=== PATIENT | male | born 1965 | race American Indian/Alaskan Native ===

== ENCOUNTER 2020-03-17 13:53 | Emergency (ER) | payer SELFPAY ==
[~2020-03-17] VITALS: Ht 160 cm; Wt 66.4 kg
[2020-03-17 14:04] VITALS: TEMP 97.3
[2020-03-17] MEDS ORDERED: ASACOL HD800 MG PO (14:22)
[2020-03-17 14:47] LABS: BASO # 0.1 (0.0-0.2); BASO % 1.2 % (0.0-2.0); EOS # 0.6 (0.0-0.7); EOS % 9.1 % (0-4.0); GRAN # 3.7 (1.4-6.5); GRAN % 54.9 % (42.2-75.2); HEMATOCRIT 47.8 % (42.0-52.0); HEMOGLOBIN 16.3 g/dl (13.5-18.0); LYMPH # 1.5 (1.2-3.4); LYMPH % 22.5 % (20.0-51.0); MEAN CELL VOLUME 96 fl (80.0-100.0); MEAN CORPUSCULAR HEMOGLOBIN 33 pg (27.0-31.0); MEAN CORPUSCULAR HGB CONC 34 g/dl (33.0-37.0); MEAN PLATELET VOLUME 10.2 fl (7.4-10.4); MONO # 0.8 (0.1-0.6); PLATELET COUNT 273 K/mm3 (130-400); REDCELL DISTRIBUTION WIDTH-CV 12.5 % (11.5-14.5)
[2020-03-17 14:57] LABS: ALANINE AMINOTRANSFERASE 57 U/L (4-49); ALBUMIN 4.5 gm/dL (3.5-5.0); ALKALINE PHOSPHATASE 120 U/L (50-136); ANION GAP 10 mmol/L (7-16); AST,SGOT 43 U/L (15-37); BILIRUBIN,TOTAL 0.5 mg/dL (0.0-1.0); BLOOD UREA NITROGEN 18 mg/dL (9-20); CALCIUM 9.5 mg/dL (8.4-10.2); CARBON DIOXIDE 28 mmol/L (22-30); CHLORIDE 103 mmol/L (98-107); CREATININE, serum 0.93 (0.66-1.25); GLUCOSE 140 mg/dL (74-106); POTASSIUM 3.9 mmol/L (3.4-5.0); SODIUM 140 mmol/L (137-145); TOTAL PROTEIN 8.2 gm/dL (6.4-8.2)
[2020-03-17 15:09] LABS: TROPONIN-I < 0.012 ng/mL (0.000-0.035)
[2020-03-17] MEDS ORDERED: PREDNISONE20 MG PO (16:49)
[2020-03-17] MEDS ORDERED: ZITHROMAX 250M250 MG PO (16:50)
[2020-03-17 16:59] VITALS: BP 154/112; PULSE 76
== END 2020-03-17 17:01 | disposition home or self-care (01) ==
LOC: COL.ER 13:53
PROVIDERS: Nurse Practitioner Family
DX: J45.901 Unspecified asthma with (acute) exacerbation (principal); I10 Essential (primary) hypertension; F10.10 Alcohol abuse, uncomplicated; Z20.822 Contact with and (suspected) exposure to COVID-19; Z91.19 Patient's noncompliance with other medical treatment and regimen
CPT/HCPCS: J2930

== ENCOUNTER 2020-07-11 11:32 | Observation (INO) | payer MEDICARE ==
[~2020-07-11] VITALS: Ht 154.9 cm; Wt 69.1 kg
[~2020-07-11 11:32] MED LIST: ASACOL HD800 MG PO; PREDNISONE20 MG PO; ZITHROMAX 250M250 MG PO
[2020-07-11 12:27] LABS: BASO # 0.1 (0.0-0.2); BASO % 0.6 % (0.0-2.0); EOS # 0.3 (0.0-0.7); EOS % 3.8 % (0-4.0); GRAN # 5.5 (1.4-6.5); GRAN % 69.2 % (42.2-75.2); HEMATOCRIT 44.4 % (42.0-52.0); HEMOGLOBIN 15.3 g/dl (13.5-18.0); LYMPH # 1.3 (1.2-3.4); LYMPH % 16.6 % (20.0-51.0); MEAN CELL VOLUME 95 fl (80.0-100.0); MEAN CORPUSCULAR HEMOGLOBIN 33 pg (27.0-31.0); MEAN CORPUSCULAR HGB CONC 35 g/dl (33.0-37.0); MEAN PLATELET VOLUME 10.4 fl (7.4-10.4); MONO # 0.8 (0.1-0.6); MONO % 9.5 % (1.7-9.3); PLATELET COUNT 222 K/mm3 (130-400); RED BLOOD COUNT 4.68 M/mm3 (4.20-5.60); REDCELL DISTRIBUTION WIDTH-CV 12.1 % (11.5-14.5)
[2020-07-11 12:36] LABS: ALANINE AMINOTRANSFERASE 51 U/L (4-49); ALBUMIN 4.2 gm/dL (3.5-5.0); ALKALINE PHOSPHATASE 123 U/L (50-136); ANION GAP 8 mmol/L (7-16); AST,SGOT 50 U/L (15-37); BILIRUBIN,TOTAL 0.5 mg/dL (0.0-1.0); BLOOD UREA NITROGEN 25 mg/dL (9-20); CALCIUM 9.1 mg/dL (8.4-10.2); CARBON DIOXIDE 26 mmol/L (22-30); CHLORIDE 104 mmol/L (98-107); CREATININE, serum 0.86 (0.66-1.25); GLUCOSE 107 mg/dL (74-106); LIPASE 121 U/L (23-300); SODIUM 139 mmol/L (137-145); TOTAL PROTEIN 7.8 gm/dL (6.4-8.2)
[2020-07-11 12:40] LABS: ALCOHOL(ethanol),MEDICAL < 10 mg/dL
[2020-07-11 12:44] LABS: PROTHROMBIN TIME 11.1 SECONDS (9.7-12.8)
[2020-07-11 13:08] LABS: TROPONIN-I 0.085 ng/mL (0.000-0.035)
[2020-07-11] MEDS ORDERED: PROVENTIL0.09 MG/A1 IH (14:30)
[2020-07-11] MEDS ORDERED: ALBUTEROL0.83 MG/ML IH (14:30)
[2020-07-11] MEDS ORDERED: CLARITIN 1010 MG/TAB PO (14:31)
[2020-07-11] MEDS ORDERED: LIPITOR20 MG PO (14:31)
[2020-07-11 18:14] VITALS: BP 153/103; PULSE 64; TEMP 98.7
--- NOTE | 2020-07-11 19:15 | NUR ---
Received report from Nicholas. Assesment and medrec done. Patient is alert and oriented. He denies pain. Informed patient about his procedure tomorrow. Instructed him to be NPO by midnight and diet restrictions like no caffeine until the procedure is completed. He verbalizes understanding. Urinal placed at bedside. Informed him that we need urine sample.
[2020-07-11] MEDS ORDERED: VTAMINC250TA PO (19:23)
[2020-07-11] MEDS ORDERED: VITAMIN D250 MCG PO (19:23)
[2020-07-11 19:30] VITALS: BP 125/78; PULSE 64; TEMP 97.8
[2020-07-11 21:55] VITALS: BP 151/92; PULSE 65; TEMP 98
[2020-07-11 22:21] LABS: COLLECTION METHOD CLEAN CATCH
[2020-07-11 22:31] LABS: PH 6 (5-8); SQUAMOUS EPITHELIAL 0-2 /hpf; URINE APPEARANCE Clear; URINE BACTERIA None Seen /hpf; URINE BILIRUBIN Negative (NEGATIVE); URINE BLOOD Negative (NEGATIVE); URINE COLOR Yellow; URINE GLUCOSE Negative (NEGATIVE); URINE KETONE Negative (NEGATIVE); URINE LEUKOCYTE ESTERASE Negative (NEGATIVE); URINE NITRATE Negative (NEGATIVE); URINE PROTEIN(semi-quant) Negative (NEGATIVE); URINE RBC None Seen /hpf; URINE UROBILINOGEN Negative (NEGATIVE); URINE WBC None Seen /hpf
[2020-07-11 22:38] LABS: TRICYCLIC ANTIDEPRESS URINE NEGATIVE
[2020-07-12] VITALS (13 sets, daily range): BP systolic 32–163; BP diastolic 78–105; PULSE 59–100; TEMP 97.6–98.7
--- NOTE | 2020-07-12 06:12 | NUR ---
Patient had uneventful night. He denies chest pain. Maintained on NPO. He is not scoring on CIWA.
[2020-07-12 07:09] LABS: ALANINE AMINOTRANSFERASE 47 U/L (4-49); ALBUMIN 3.7 gm/dL (3.5-5.0); ALKALINE PHOSPHATASE 106 U/L (50-136); ANION GAP 5 mmol/L (7-16); AST,SGOT 45 U/L (15-37); BILIRUBIN,TOTAL 0.6 mg/dL (0.0-1.0); BLOOD UREA NITROGEN 19 mg/dL (9-20); CALCIUM 8.7 mg/dL (8.4-10.2); CARBON DIOXIDE 26 mmol/L (22-30); CHLORIDE 105 mmol/L (98-107); CREATININE, serum 0.83 (0.66-1.25); GLUCOSE 98 mg/dL (74-106); MAGNESIUM 2.2 mg/dL (1.6-2.3); POTASSIUM 4.1 mmol/L (3.4-5.0); SODIUM 136 mmol/L (137-145); TOTAL PROTEIN 7.1 gm/dL (6.4-8.2)
[2020-07-12 07:22] LABS: TROPONIN-I < 0.012 ng/mL (0.000-0.035)
--- NOTE | 2020-07-12 08:53 | NUR ---
patient is going down at this time for a Nuc.Med stress test
--- NOTE | 2020-07-12 10:15 | NUR ---
Assessment completed, alert/oriented, vital signs stable, denies any chest pain or discomfort, patient returned back to room 352 from his stress test about this time, he remains NPO untill stress test results read, heart RRR/SR on tele, lungs CTA/ no resp.difficulty noted, CIWA scores 1-3 and does not appear to be having any active ETOH withdrawl issues, he denies ot her needs at this time, will continue to monitor
[2020-07-12] MEDS ORDERED: THIAMINE 1100 MG/TAB PO (11:13)
[2020-07-12] MEDS ORDERED: DUO-KAPS1 CAP PO (11:13)
[2020-07-12] MEDS ORDERED: ZESTRIL 5MG5 MG PO ×2 (11:17)
[2020-07-12] MEDS ORDERED: [UNRECOGNIZED DRUG - OTHER] MC (11:23)
[2020-07-12] MEDS ORDERED: TOPROL XL 50MG50 MG PO (11:34)
--- NOTE | 2020-07-12 11:44 | NUR ---
Physican notified of high blood pressure and abnormal EKG prior to start of stress test.
--- NOTE | 2020-07-12 13:24 | NUR ---
Dairy Manager and Sheri DEVI met with the patient to present ROQUE forms. The patient understood and signed the forms. Copies provided to the patient, originals in chart. Dairy Manager met with the patient to complete intake. The patient independently (alone) in [place]. The patient has a cane and uses a nebulizer. The patient's PCP is EBONY Cheung and receives medications from [facility]. The patient does not have advanced directives in the EMR but was interested in DPOA-HC form. Form provided. The patient is not and has one daughter, Asia. The plan is to return home at discharge, Asia providing transportation. SW discussed alcohol use treatment with the patient and provided education. He does not want tx at this time. He has had periods where he quit in the past. *Discharge disposition: Home
--- NOTE | 2020-07-12 13:47 | NUR ---
Discharge orders discussed with patient, instructed to abstain from ETOH consumption, instructed to follow up with PCP/cardiology/GI as scheduled, IV and tele removed, instructed to take meds as prescribed, scripts sent to pharmacy for him, he is ambulatory and i escorted him out the door
== END 2020-07-12 13:49 | disposition home or self-care (01) ==
LOC: COL.ER 11:32 → MEDICAL 15:06
PROVIDERS: Emergency Medicine; Nurse Practitioner Primary Care; Physician Assistant; ADMIT Emergency Medicine
DX: F10.239 Alcohol dependence with withdrawal, unspecified (principal); R07.89 Other chest pain; R79.89 Other specified abnormal findings of blood chemistry; I10 Essential (primary) hypertension; J45.909 Unspecified asthma, uncomplicated; K52.9 Noninfective gastroenteritis and colitis, unspecified; E78.5 Hyperlipidemia, unspecified; I34.0 Nonrheumatic mitral (valve) insufficiency; Y90.9 Presence of alcohol in blood, level not specified; Z79.52 Long term (current) use of systemic steroids; Z79.899 Other long term (current) drug therapy; Z87.891 Personal history of nicotine dependence; Z91.09 Other allergy status, other than to drugs and biological substances
CPT/HCPCS: 99222-AI; A9500; G0378; J2060; J2785; J3411; J3475; J7030